=== PATIENT | male | born 1955 | race Caucasian/White ===

== ENCOUNTER 2019-12-06 15:05 | Emergency (ER) | payer MEDICARE ==
[~2019-12-06] VITALS: Ht 180.3 cm; Wt 55.8 kg
[~2019-12-06 15:05] MED LIST: CIMZIA SQ; COLESTIPOL HCL1 G1 PO; CYMBALTA30 MG PO; FLOMAX PO; OPIUM TINC10 MG/1 ML PO; PHENERGAN 25 MG25 MG PO; SEROQUEL XR150 M1 PO; VICODIN 5-5001 EACH PO; XANAX 0.25 MG0.25 MG PO; ZOCOR 10 MG TAB10 MG PO; [UNRECOGNIZED DRUG - REMARK]
[2019-12-06] MEDS ORDERED: STELARA90 MG/1 ML SUBQ (15:23)
[2019-12-06] MEDS ORDERED: OXYCODONE HCL20 M1 PO (15:23)
[2019-12-06] MEDS ORDERED: VITAMIN B-121000 MC2 SUBQ (15:24)
[2019-12-06] MEDS ORDERED: VITAMIN D-40010 MCG PO (15:24)
[2019-12-06 16:27] LABS: ABSOLUTE BASOPHILS 0.1 thou/uL (0.0-0.2); ABSOLUTE EOSINOPHILS 0.1 thou/uL (0.0-0.7); ABSOLUTE LYMPHOCYTES 2.4 thou/uL (0.8-5.3); ABSOLUTE MONOCYTES 0.7 thou/uL (0.0-1.2); ABSOLUTE NEUTROPHILS 6.5 thou/uL (1.6-8.1); BASOPHILS 0.7 %; EOSINOPHILS 1.3 %; HEMATOCRIT 38.8 % (42.0-52.0); HEMOGLOBIN 13.3 gm/dL (14.0-18.0); LYMPHOCYTES 24.4 %; MCH 33.6 pg (26.0-34.0); MCHC 34.3 g/dL (28.0-37.0); MONOCYTES 6.8 %; MPV 9.6 fl. (7.2-11.1); NUCLEATED RBCS 0 /100WBC; PLATELET COUNT* 193 thou/uL (150-400); POLYS 66.8 %; RBC 3.96 mil/uL (4.50-6.00); RDW-CV 14.7 % (10.5-14.5); WBC 9.8 thou/uL (4.0-11.0)
[2019-12-06 16:36] LABS: BE 1.9 mmol/L (-2 to +3); PCO2 41.6 mmHg (35.0-45.0); PO2 62.7 mmHg (75.0-100.0); pH 7.423 (7.340-7.450)
[2019-12-06 16:38] LABS: APTT 27.2 Seconds (25.0-31.3); PROTIME 10.7 Seconds (9.20-11.50)
[2019-12-06 16:39] LABS: CALCIUM 8.5 mg/dL (8.5-10.1); CREATININE 1.4 mg/dL (0.6-1.3); POTASSIUM 4.8 mmol/L (3.5-5.1)
[2019-12-06 16:49] LABS: ALBUMIN 3.2 g/dL (3.4-5.0); MAGNESIUM 1.3 mg/dL (1.8-2.4); TOTAL BILIRUBIN 0.5 mg/dL (<0.1-1.0); TOTAL PROTEIN 6.9 g/dL (6.4-8.2)
[2019-12-06 16:54] LABS: URINE BILIRUBIN NEGATIVE (Negative); URINE BLOOD 2+ (Negative); URINE CLARITY CLEAR; URINE COLOR YELLOW; URINE GLUCOSE-RANDOM NEGATIVE (Negative); URINE KETONES NEGATIVE (Negative); URINE LEUKOCYTES-REFLEX NEGATIVE (Negative); URINE NITRITE-REFLEX NEGATIVE (Negative); URINE PROTEIN NEGATIVE (Negative); URINE UROBILINOGEN 0.2 E.U./dl (0.2-1.0)
[2019-12-06 17:08] LABS: BACTERIA-REFLEX None Seen /HPF (None Seen); CASTS None Seen /LPF (None Seen); CRYSTALS None Seen /LPF (None Seen); MUCUS None Seen strn/LPF (None Seen); SQUAMOUS 0-3 Few /LPF (0-3); URINE RBC 3-10 Few /HPF (0-2); URINE WBC-REFLEX None Seen /HPF (0-5)
[2019-12-06] MEDS ORDERED: IPRAT-ALBUT 0.5-3 ML INH (18:30)
[2019-12-06] MEDS ORDERED: PREDNISONE 10 M10 M1 PO (18:30)
[2019-12-06] MEDS ORDERED: NEBULIZER MISCELL (18:30)
[2019-12-06 18:35] VITALS: BP 130/62
--- NOTE | 2019-12-06 19:05 | EKG ---
[place] [address] ELECTROCARDIOGRAM REPORT Name: CHRISTINA THIBODEAUX Room: [facility]#: [id number] Admission: 12/06/19 Attend Phys: Discharge: 12/06/19 Date of : 55 Date of Service: 12/06/19 1523 Report #: [id number] THIS REPORT FOR: //name// [facility] ED Test Date: 2019-12-06 Test Time: 15:23:18 Pat Name: CHRISTINA THIBODEAUX Department: Room: Gender: [employer]: : 1955 Requested By: Katie Weathers Order Number: [id number] MD: Bhupinder Manzo Measurements Intervals [place] Rate: 66 P: 81 VA: 143 QRS: 86 QRSD: 107 T: 75 QT: 387 QTc: 406 Interpretive Statements Sinus rhythm Borderline right axis deviation Compared to ECG 05/04/2012 21:56:18 No significant changes Electronically Signed On 12-06-2019 19:05:10 CDT by Bhupinder Manzo [email or web address] <ELECTRONICALLY SIGNED> By: Bhupinder Manzo MD, [facility] 12/06/19 1905 1523 1523 Bhupinder Manzo MD, [facility] /EPI
== END 2019-12-06 18:35 | disposition home or self-care (01) ==
LOC: M.ERS 15:05
PROVIDERS: Personal Emergency Response Attendant
DX: J98.01 Acute bronchospasm (principal); Z20.828 Contact with and (suspected) exposure to other viral communicable diseases; K50.90 Crohn's disease, unspecified, without complications; Z90.49 Acquired absence of other specified parts of digestive tract